=== PATIENT | female | born 1945 | race Caucasian/White ===

== ENCOUNTER 2023-12-07 12:53 | Emergency (ER) | payer OTHER ==
[~2023-12-07] VITALS: Ht 165.1 cm; Wt 80.3 kg
[2023-12-07 13:01] VITALS: BP_SYST 140; PULSE 61; RESP 20; O2SAT 98
[2023-12-07] MEDS: MORPHINE 4 MG INJ. 4 MG/ML VIAL IM ONE ×2 (13:36→15:29)
[2023-12-07] MEDS ORDERED: HYDR-3927 PO (15:18)
[2023-12-07] MEDS ORDERED: IBUP-1969 PO (15:18)
[2023-12-07 15:30] VITALS: BP_SYST 140; PULSE 61; RESP 20; TEMP 97.7; O2SAT 98
== END 2023-12-07 15:35 | disposition home or self-care (01) ==
LOC: SED 12:53
DX: S42.211A Unspecified displaced fracture of surgical neck of right humerus, initial encounter for closed fracture (principal); W18.39XA Other fall on same level, initial encounter; M25.521 Pain in right elbow; Y93.89 Activity, other specified; Y92.89 Other specified places as the place of occurrence of the external cause; Y99.8 Other external cause status
CPT/HCPCS: 99285; 29105; 73200; 73030; 73080; 96372; J2270